=== PATIENT | male | born 1995 | race Hispanic/Latino ===

== ENCOUNTER 2020-11-28 04:25 | Emergency (ER) | payer SELFPAY ==
[~2020-11-28] VITALS: Ht 170.2 cm; Wt 63.0 kg
[2020-11-28 04:44] VITALS: BP 127/72
[2020-11-28] MEDS ORDERED: FLUORESCEIN SODIUM 1 STRIP STRIP ONE (05:58)
[2020-11-28] MEDS ORDERED: TETRACAINE HCL 0.5% 4 ML OPHTH SOLN ONE (05:58)
== END 2020-11-28 06:42 | disposition home or self-care (01) ==
LOC: EDH 04:25
DX: H54.62 Unqualified visual loss, left eye, normal vision right eye (principal); H10.9 Unspecified conjunctivitis; J04.0 Acute laryngitis; Z98.890 Other specified postprocedural states